=== PATIENT | male | born 1945 | race Caucasian/White ===

== ENCOUNTER 2024-06-03 16:41 | Inpatient (IN) | payer OTHER, SELFPAY ==
[2024-06-03] VITALS (7 sets, daily range): BP systolic 108–133; BP diastolic 56–75; BMI 38.6
--- NOTE | 2024-06-03 14:04 | ED.GENMED ---
History of Present Illness
General
Chief Complaint: Cold/Flu/URI Symptoms
Time Seen by Provider: 06/03/24 13:57
History of Present Illness
History of Present Illness:
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 Patient arrives with who reports prior to arrival, patient went to the bathroom. When he got up, he felt like he
was going to pass out so she told him to lay down. When he tried to lay down, reported that he was unable to because he felt short of breath, so they subsequently called the medics. Patient notes that he started coughing yesterday, dry cough. He
has also been feeling feverish with chills. Denies any known sick contacts. Denies abdominal pain or GI symptoms. He is not oxygen dependent. Per medics, was hypoxic to 88%. On arrival to the hospital, hypoxic 86% on room air. No additional
symptoms reported at this time.
Phy Exam
Physical Exam
Physical Exam:
General: Well-appearing, no clinical signs of dehydration, nontoxic and in no acute distress
HEENT: protecting airway
Neck: appears supple
CV: Normal heart rate, regular rhythm, no evidence of cyanosis
Resp: Mild increased work of breathing, lungs clear to auscultation bilaterally
Abd: Soft and non-distended, no tenderness to palpation, normal bowel sounds
Extremities: No deformities, no swelling, no erythema, pulses and sensation intact
Neuro: alert, no focal neurologic deficit
: deferred
Rectal: deferred
Psych: Normal affect
Skin: Intact
Course
Orders/Labs/Results
Orders:
Orders
06/03/24 13:57
Electrocardiogram (*1) Urgent
Reason for Study: Syncope
06/03/24 13:58
EKG- Treatment ONCE
06/03/24 14:04
CMP [Comprehensive Metabolic Panel] Urgent
COVID-19 Antigen Urgent
Source: Nasal Swab
Complete Blood Count/With Diff Urgent
06/03/24 14:26
0.9% Sodium Chloride 1000 ml [Nss] 1,000 ml IV BOLUS
Acetaminophen [Tylenol] 1,000 mg PO NOW STA
CR Chest - 2 Views Urgent
Comment:
Reason For Exam: cough, covid
06/03/24 16:03
Troponin I Urgent
Abnormal Lab Results
06/03/24
14:04
RBC 4.46 L 10^6/uL
(4.70-6.10)
Hgb 12.9 L g/dL
(13.0-18.0)
MCHC 31.8 L g/dL
(33.0-37.0)
RDW 16.7 H %
(11.5-14.5)
MPV 12.0 H fL
(7.4-10.4)
Abs Immat Gran (auto) 0.1 H 10^3/uL
(0-0.05)
Absolute Neuts (auto) 7.7 H 10^3/uL
(1.4-6.5)
Absolute Lymphs (auto) 0.4 L 10^3/uL
(1.2-3.4)
Immature Gran % 0.7 H %
(0-0.5)
Neutrophils % 90.2 H %
(42.2-75.2)
Lymphocytes % 4.8 L %
(20.5-51.1)
Glucose 138 H mg/dl
(70-99)
SARS-CoV-2 Antigen Positive A
(Negative)
06/03/24 14:04
06/03/24 14:04
Vital Signs
Initial and Last Documented VS:
Initial Vital Signs
BP
114/56
06/03/24 13:51
Last Documented Vital Signs
Temp Pulse Resp BP Pulse Ox
100.5 F H 95 16 114/56 94
06/03/24 14:01 06/03/24 14:01 06/03/24 14:01 06/03/24 14:01 06/03/24 14:02
MDM/Problems Addressed
MDM/Problems Addressed:
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 Vital signs on arrival significant for hypoxia and fever.
On exam, patient nontoxic, mild increased work of breathing, however stable on supplemental O2. Given presenting vital signs and report of cough, concern for infectious pathology, likely pulmonary in etiology, viral versus bacterial. Suspect
etiology of near syncopal episode, likely volume depletion and infectious process. EKG obtained, nonischemic, no arrhythmia. Will administer Tylenol for fever and start IV fluids. Will obtain laboratory analysis, chest x-ray imaging, COVID swab.
14:45 - Patient's COVID is positive. At this time lower suspicion for sepsis. No indication for full 30 cc/kg fluid bolus. Holding antibiotics. Patient will require admission given presenting hypoxia with known pulmonary infection. Patient
agreeable to plan.
*EKG
Interpreted by ED Provider?: Yes
EKG Intrepretation Date: 06/03/24
EKG Intrepretation Time: 14:42
Interpretation: normal
Heart Rate: 79
Rate: normal
Rhythm: sinus and PVC's
[place]: normal axis
Interval: normal interval
QRS Pattern: normal QRS
Ischemia: no ischemia
*Critical Care Note
Total Time (30-74mins, 75-104mins- exclusive of procedures): Not Applicable
ED Attending Note
-
Portions of this chart may have been created with voice recognition software.� Occasional wrong word or��sound alike� substitutions may have occurred due to the inherent limitations of voice recognition software.
Discharge Plan
Departure
Prescriptions:
No Action
hydroxyurea 500 mg Capsule
1,000 mg PO DAILY
polyethylene glycol 3350 [Miralax] 17 gram Powder In Packet
17 g PO DAILY
aspirin 81 mg Tablet,Delayed Release (Dr/Ec)
81 mg PO DAILY
PreserVision AREDS 4,296 mcg-226 mg-90 mg Capsule
1 cap PO BID
Referrals:
UNKNOWN - PT DOES,NOT KNOW [Unknown Provider] -
Interventions
Interventions:
*Risk Screen - Suicide Last Done: 06/03/24 14:03
*General Assessment Last Done: 06/03/24 14:03
*Neglect/Abuse Screening Last Done: 06/03/24 14:03
ED- Pulmonary Assessment Last Done: 06/03/24 14:02
Discharge Date and Time
Print Language: LEBANESE
[2024-06-03 14:14] LABS: COVID-19 Antigen Positive (Negative)
[2024-06-03 14:15] LABS: % Basophils 1.3 % (0-2); % Eosinophils 0.6 % (0-6); % Immature Granulocytes 0.7 % (0-0.5); % Lymphocytes 4.8 % (20.5-51.1); % Monocytes 2.4 % (1.7-9.3); % Neutrophils 90.2 % (42.2-75.2); Absolute Basophils 0.1 10^3/uL (0-0.2); Absolute Eosinophils 0.1 10^3/uL (0-0.7); Absolute Immature Granulocytes 0.1 10^3/uL (0-0.05); Absolute Lymphocytes 0.4 10^3/uL (1.2-3.4); Absolute Monocytes 0.2 10^3/uL (0.1-0.6); Absolute Neutrophils 7.7 10^3/uL (1.4-6.5); Hematocrit 40.6 % (39.0-52.0); Hemoglobin 12.9 g/dL (13.0-18.0); Mean Corp Hgb Conc. 31.8 g/dL (33.0-37.0); Mean Corpuscular Hgb 28.9 pg (27.0-31.0); Nucleated Red Blood Cells % 0 % (-); Platelet Count 139 10^3/uL (130-400); Red Blood Cell Count 4.46 10^6/uL (4.70-6.10); Red Cell Dist. Width 16.7 % (11.5-14.5); White Blood Cell Count 8.5 10^3/uL (4.8-10.8)
[2024-06-03] MEDS: NSS 1000 IV (14:36)
[2024-06-03] MEDS: TYLENOL 1000 MG PO (14:40)
[2024-06-03 14:43] LABS: ALT (SGPT) 28 U/L (0-50); AST (SGOT) 46 U/L (17-59); Albumin 4.3 g/dl (3.5-5.0); Alkaline Phosphatase 72 U/L (38-126); Blood Urea Nitrogen 16 mg/dl (9-20); Calcium 9.2 mg/dl (8.4-10.2); Carbon Dioxide 26 mmol/L (22-30); Chloride 104 mmol/L (98-107); Estimated Creatinine Clearance 98 ml/min; Glucose 138 mg/dl (70-99); Potassium 3.9 mmol/L (3.5-5.1); Sodium 138 mmol/L (135-145); Total Bilirubin 0.6 mg/dl (0.2-1.3); Total Protein 6.7 g/dl (6.3-8.2); eGFR > 60.00
[2024-06-03] MEDS: DECADRON 10 MG IV (16:16)
--- NOTE | 2024-06-03 16:36 | HPS.HSE ---
Family Physician
-
Family Physician: Papito Brock
Chief Complaint
-
cough, shortness of breath
History of Present Illness
79-year-old male past medical history of polycythemia vera, prostate cancer s/p resection presenting to the emergency room for near syncopal episode and cough. Prior to arrival patient went to the bathroom and when he got up he felt like he was
having chills and weak so told him to lie down. When he tried to lie down he was unable to because he felt shortness of breath so medics were called. He started having dry cough since yesterday. He has had fevers and chills. He denies chest
pain or dizziness. No sick contacts. Denies abdominal pain or nausea vomiting but did have diarrhea today. He was hypoxic to 88%.
Denies smoking. Drinks alcohol occasionally.
Medical History
Past Medical History
Past Medical History: Reports Other (polycythemia vera)
Past Surgical History: Reports Cholecystectomy, Urological (prostate cancer resection ) and Other
Social History
Tobacco: Non-smoker
Alcohol: Occasional
Drug: None
Family History
Family History: Not pertinent
Allergies / Home Medications
Allergies reflects when Allergies were last updated in [employer]
Home Medications with original date entered in [employer]
Allergy/Medication List:
Allergies
Allergy/AdvReac Type Severity Reaction Status Date / Time
No Known Allergies Allergy Unverified 02/13/11 06:47
Home Medications
aspirin 81 mg tablet,delayed release 81 mg PO DAILY 06/03/24
hydroxyurea 500 mg capsule 1,000 mg PO DAILY 06/03/24
polyethylene glycol 3350 17 gram oral powder packet (Miralax) 17 g PO DAILY 06/03/24
vitamins A,C,E-ftxf-fisnyh 4,296 mcg-226 mg-90 mg capsule (PreserVision AREDS) 1 cap PO BID 06/03/24
Review of Systems
-
History Source: Patient
A 12 point ROS was completed and negative except as noted: Yes
Constitutional: Reports No Symptoms
EENT: Reports No Symptoms
Respiratory: Reports See HPI
Cardiac: Reports See HPI
Abdomen/GI: Reports No Symptoms
: Reports No Symptoms
Musculoskeletal: Reports No Symptoms
Skin: Reports No Symptoms
Neurological: Reports No Symptoms
Endocrine: Reports No Symptoms
Hematologic/Lymphatic: Reports No Symptoms
Psych: Reports No Symptoms
Physical Exam
Vital Signs
Vital Signs
Temp Pulse Resp BP Pulse Ox
100.5 F H 76 25 108/63 93
06/03/24 14:01 06/03/24 16:15 06/03/24 16:15 06/03/24 16:00 06/03/24 16:15
Physical Exam
General: Well Developed, Well Nourished and No Apparent Distress
HEENT: NormoCephalic, Moist mucous membranes and Atraumatic
Respiratory: Clear
Cardiac: S1/S2 and Regular Rhythm; No Murmur or Rub
GI: Soft, Non Tender, Non Distended and Normal Bowel Sounds; No Organomegaly
Rectal: Deferred by Provider
Musculoskeletal: No Clubbing, No Cyanosis and No Edema
Skin: No Rash
Neuro: Nonfocal/grossly intact
Laboratory Results
-
06/03/24 14:04
06/03/24 14:04
Laboratory Results
Total Bilirubin 0.6 mg/dl (0.2-1.3) 06/03/24 14:04
AST 46 U/L (17-59) 06/03/24 14:04
ALT 28 U/L (0-50) 06/03/24 14:04
Alkaline Phosphatase 72 U/L (38-126) 06/03/24 14:04
Data Reviewed
-
Lab Data: Labs Reviewed by me
Old Records: Reviewed
Impression/Plan
-
IMPRESSION:
PLAN:
# Sepsis (fever, tachycardia)/hypoxic respiratory insufficiency secondary to COVID pneumonia
-Symptoms started on 06/02
-Currently on 4 L oxygen
-Chest x-ray unremarkable
-Dexamethasone 6 mg daily
-Remdesivir
-IV fluids given
# Diarrhea secondary to COVID
-Continue to monitor
Polycythemia vera
-Continue hydroxyurea
-Continue aspirin
Prostate cancer status post resection
Full code
DVT prophylaxis�Lovenox
Regular diet
[2024-06-03 16:43] LABS: Troponin I < 0.012 ng/ml
--- NOTE | 2024-06-03 18:30 | PTCARENOTE ---
Received patient from ED into room 2129 on COVID precautions, patient ambulatory in room with stand by assist, AAOx3, VSS, 98% on 3L O2, denies any SOB or trouble breathing. Admission questions completed with patient at bedside. Regular diet order
entered for patient. Patient states chronic urinary frequency from previous prostate resection, patient given urinal to use at bedside, educated on using call burks to ring for assistance if needing to get up and move around room; patient verbalizes
understanding. Patient oriented to room, states no concerns at this time.
[2024-06-03] MEDS: LOVENOX 40 MG SC (18:36)
[2024-06-03] MEDS: VEKLURY 250 MG IV (21:00)
[2024-06-03] MEDS: OCUVITE SOFTGEL 1 CAP PO (21:00)
[2024-06-03] MEDS: NSS 30 IV (21:08)
[2024-06-04 05:47] LABS: % Basophils 0.6 % (0-2); % Immature Granulocytes 0.5 % (0-0.5); % Lymphocytes 5.8 % (20.5-51.1); % Monocytes 4.5 % (1.7-9.3); % Neutrophils 88.6 % (42.2-75.2); Absolute Basophils 0.1 10^3/uL (0-0.2); Absolute Immature Granulocytes 0.1 10^3/uL (0-0.05); Absolute Lymphocytes 0.6 10^3/uL (1.2-3.4); Absolute Monocytes 0.5 10^3/uL (0.1-0.6); Absolute Neutrophils 9.1 10^3/uL (1.4-6.5); Hematocrit 41.5 % (39.0-52.0); Hemoglobin 13.5 g/dL (13.0-18.0); Mean Corp Hgb Conc. 32.5 g/dL (33.0-37.0); Mean Corpuscular Hgb 29.5 pg (27.0-31.0); Mean Corpuscular Volume 90.6 fL (80.0-94.0); Mean Platelet Volume 12.3 fL (7.4-10.4); Nucleated Red Blood Cells % 0 % (-); Platelet Count 140 10^3/uL (130-400); Red Blood Cell Count 4.58 10^6/uL (4.70-6.10); Red Cell Dist. Width 16.8 % (11.5-14.5); White Blood Cell Count 10.3 10^3/uL (4.8-10.8)
[2024-06-04 06:05] LABS: ALT (SGPT) 61 U/L (0-50); AST (SGOT) 63 U/L (17-59); Albumin 4.2 g/dl (3.5-5.0); Alkaline Phosphatase 77 U/L (38-126); Blood Urea Nitrogen 13 mg/dl (9-20); Calcium 8.9 mg/dl (8.4-10.2); Carbon Dioxide 26 mmol/L (22-30); Chloride 107 mmol/L (98-107); Estimated Creatinine Clearance > 125 ml/min; Glucose 135 mg/dl (70-99); Potassium 4.6 mmol/L (3.5-5.1); Sodium 140 mmol/L (135-145); Total Bilirubin 0.6 mg/dl (0.2-1.3); Total Protein 6.7 g/dl (6.3-8.2); eGFR > 60.00
[2024-06-04 07:15] VITALS: BP 128/84
[2024-06-04] MEDS: ASPIR LOW (ENTERIC COATED) 81 MG PO (08:26)
[2024-06-04] MEDS: HYDREA 1000 MG PO (08:26)
[2024-06-04] MEDS: OCUVITE SOFTGEL 1 CAP PO ×2 (08:26→20:02)
[2024-06-04] MEDS: VEKLURY 250 MG IV (11:22)
[2024-06-04] MEDS: NSS 30 IV (11:23)
[2024-06-04 15:25] VITALS: BP 107/55
--- NOTE | 2024-06-04 16:08 | CM ---
Initial assessment completed with patient and who live in a 1 story condo with no steps to enter. [employer] patient was independent and drove. No DME or in-home services. No psychiatric hospitalizations. Pharmacy is [facility] on [address] in
[place] and PCP is Dr. Papito Brock. Anticipate home with no needs.
--- NOTE | 2024-06-04 17:30 | W.PN.HOSP.TC ---
Today's Communication/Plan
-
See plan
Assessment / Plan
Assessment / Plan
Impression:*
Acute hypoxic respiratory insufficiency secondary to COVID bronchitis
Acute COVID infection symptoms initiated on 06/02 with no evidence of sepsis.
Viral/COVID bronchitis possible pneumonia.
Episode of diarrhea prior to presentation
Other conditions:
Polycythemia vera.
Prostate carcinoma status postresection
Plan:*
Acute hypoxic respiratory insufficiency secondary to COVID bronchitis
Acute COVID bronchitis
Hypoxia likely due to persistent cough
Chest x-ray with no infiltrate.
Currently with no distress. Exam with mild rhonchi and no bronchospasm
Comfortable at rest while in 2 to 3 L of nasal cannula oxygen baseline
Check following CRP
Hold further remdesivir
Initiate Paxlovid.
Continue corticosteroids/Decadron.
Attempt to wean off oxygen
Increase activity baseline
Episode of diarrhea possibly secondary to COVID. Monitor further baseline
Polycythemia vera.
Continue hydroxyurea and aspirin.
Prostate carcinoma s/p resection.
Full code
DVT prophylaxis Lovenox.
Anticipated Discharge: 24 - 48 hours
Subjective/Interval History
-
Date of Service: June 04, 2024
Objective Data
-
Labs:
Laboratory Results
06/04/24
04:57
WBC 10.3
Hgb 13.5
Hct 41.5
Plt Count 140
Sodium 140
Potassium 4.6
Chloride 107
Carbon Dioxide 26
BUN 13
Creatinine 0.6 L
Glucose 135 H
Calcium 8.9
Total Bilirubin 0.6
AST 63 H
ALT 61 H
Alkaline Phosphatase 77
Vital Signs:
Vital Signs
Temp Pulse Resp BP Pulse Ox
98.3 F 64 20 107/55 91
06/04/24 15:25 06/04/24 15:25 06/04/24 15:25 06/04/24 15:25 06/04/24 15:25
I&O
06/03/24 06/04/24 06/05/24
06:59 06:59 06:59
Intake Total 1520 / 1520
Output Total 1425 / 1425
Balance 95 / 95
Physical Exam
-
General: Well Developed and No Apparent Distress
HEENT: Normocephalic, Atraumatic and Moist Mucous Membranes
Respiratory: Clear to Auscultation
Cardiac: Regular Rhythm and S1/S2; Negative Murmur, Rub or Gallop
GI: Soft, Nontender, Nondistended and Normal Bowel Sounds; Negative Organomegaly
Rectal: Deferred by Provider
Musculoskeletal: No Clubbing, No Cyanosis and No Edema
Skin: Negative Rash
Neuro: Nonfocal/Grossly Intact
[2024-06-04] MEDS: LOVENOX 40 MG SC (17:59)
[2024-06-04] MEDS: PAXLOVID 2X150 MG-100 MG DOSE PACK 1 DOSE PO (20:02)
[2024-06-04 23:08] VITALS: BP 138/76
[2024-06-05 07:15] VITALS: BP 134/84
[2024-06-05] MEDS: OCUVITE SOFTGEL 1 CAP PO (08:08)
[2024-06-05] MEDS: PAXLOVID 2X150 MG-100 MG DOSE PACK 1 DOSE PO (08:08)
[2024-06-05] MEDS: HYDREA 1000 MG PO (08:08)
[2024-06-05] MEDS: ASPIR LOW (ENTERIC COATED) 81 MG PO (08:08)
--- NOTE | 2024-06-05 08:59 | W.PN.HOSP.TC ---
Addendum entered and electronically signed by Jessica Mahajan MD 06/05/24 10:22:
pt met criteria for sepsis on admission
Original Note:
Today's Communication/Plan
-
d/c
Assessment / Plan
Assessment / Plan
06/05/24 -- d/c today--off O2
Impression:*
Acute hypoxic respiratory insufficiency secondary to COVID bronchitis
Acute COVID infection symptoms initiated on 06/02 with no evidence of sepsis.
Viral/COVID bronchitis possible pneumonia.
Episode of diarrhea prior to presentation
Other conditions:
Polycythemia vera.
Prostate carcinoma status postresection
Plan:*
Acute hypoxic respiratory insufficiency secondary to COVID bronchitis
Acute COVID bronchitis
Hypoxia likely due to persistent cough
Chest x-ray with no infiltrate.
Currently with no distress. Exam with mild rhonchi and no bronchospasm
Comfortable at rest while in 2 to 3 L of nasal cannula oxygen baseline
Check following CRP
Hold further remdesivir
Initiate Paxlovid.
Continue corticosteroids/Decadron.
Attempt to wean off oxygen
Increase activity baseline
Episode of diarrhea possibly secondary to COVID. Monitor further baseline
Polycythemia vera.
Continue hydroxyurea and aspirin.
Prostate carcinoma s/p resection.
Full code
DVT prophylaxis Lovenox.
Anticipated Discharge: Today
Subjective/Interval History
-
Date of Service: June 05, 2024
pt ready for d/c --no c/o
Objective Data
-
Labs:
Laboratory Results
06/05/24
06:00
WBC Pending
Hgb Pending
Hct Pending
Plt Count Pending
Sodium Pending
Potassium Pending
Chloride Pending
Carbon Dioxide Pending
BUN Pending
Creatinine Pending
Glucose Pending
Calcium Pending
Vital Signs:
max temp for 24 hours
06/04/24
23:08
Temp 98.8 F
Vital Signs
Temp Pulse Resp BP Pulse Ox
98.0 F 88 18 134/84 92
06/05/24 07:15 06/05/24 07:15 06/05/24 07:15 06/05/24 07:15 06/05/24 07:15
I&O
06/04/24 06/05/24 06/06/24
06:59 06:59 06:59
Intake Total 1520 / 1520 1720 / 1720
Output Total 1425 / 1425 2300 / 2300
Balance 95 / 95 -580 / -580
Review of Systems
-
All other systems: Reviewed and negative
Physical Exam
-
General: Well Developed, Well Nourished and No Apparent Distress
HEENT: Normocephalic and Atraumatic; Negative Oxygen
Respiratory: Clear to Auscultation; Negative Wheezes, Rales, Rhonchi or Crackles
Cardiac: Regular Rhythm and S1/S2; Negative Murmur
GI: Soft, Nontender, Nondistended and Normal Bowel Sounds
Musculoskeletal: No Clubbing, No Cyanosis and No Edema
Neuro: Awake and Alert
Psych: Calm
--- NOTE | 2024-06-05 09:09 | W.DCSUMMARY ---
Discharge Summary
Discharge Data
Date of Admission: 06/03/24
Date of Discharge: 06/05/24
-
Pending Results: No
Hospital Course
Primary care physician : Papito Brock
Principal Discharge diagnosis : Acute hypoxemic respiratory insufficiency and diarrhea secondary to COVID
Chronic Discharge diagnosis : Polycythemia vera, prostate cancer s/p resection
Hospital Course : Patient is a 79-year-old male with a history of polycythemia vera, prostate cancer who presented for a near syncopal episode with cough. Patient went up to get to the bathroom and felt like he was having chills. He was weak and
his told him to lie down. He was unable to lie down because he felt short of breath. 911 was called. He had a dry cough since a day prior to admission, along with fever and chills. He denies chest pain or dizziness. Patient was hypoxic to
88% in the emergency department and COVID-positive. He was admitted.
Problem #1: Acute hypoxemic respiratory insufficiency secondary and diarrhea secondary to COVID. Patient was admitted and started on remdesivir. Oxygen support was provided. Patient was able to be weaned off oxygen. IV Decadron was stopped.
Patient was transitioned from remdesivir to Paxlovid. Prescription has been given for discharge. Diarrhea also resolved. Likely secondary to COVID. MiraLAX was held during his hospitalization. He can restart that as able.
Problem #2: All other medical issues. These include Polycythemia vera, prostate cancer s/p resection. These medical issues were stable during his hospitalization. Medications were continued as able.
Patient is stable for discharge home at this time. If there are any questions regarding this dictation or his hospital stay, please not hesitate to call. Our office number is [phone].
Important imaging findings :
CHEST X-RAY IMPRESSION:
Moderate elevation of right hemidiaphragm.
No acute cardiopulmonary process.
Discharge Plan
-
Patient Disposition: Home (Routine Discharge)
Discharge Diagnosis/Procedures: Acute hypoxemic respiratory insufficiency secondary to COVID bronchitis, polycythemia vera, prostate carcinoma s/p resection, diarrhea likely secondary to COVID
Condition: Good
Diet: As tolerated and Regular
Activity: As tolerated
Driving Restrictions: As prior to admission
Bathing Restrictions: None
Referrals:
Papito Brock MD [Family Provider] - in less than 1 week
Prescriptions:
New
Paxlovid 300 mg (150 mg x 2)-100 mg Tablets,Dose Pack
1 ea PO BID Qty: 30 0RF
Continued
hydroxyurea 500 mg Capsule
1,000 mg PO DAILY
polyethylene glycol 3350 [Miralax] 17 gram Powder In Packet
17 g PO DAILY
aspirin 81 mg Tablet,Delayed Release (Dr/Ec)
81 mg PO DAILY
PreserVision AREDS 4,296 mcg-226 mg-90 mg Capsule
1 cap PO BID
Discharge Orders:
Discharge Patient (As Directed); Ordered 06/05/24
Ordered By: Jessica Mahajan
Discharge Date and Time
Print Language: BULGARIAN
--- NOTE | 2024-06-05 10:04 | PN.CDI ---
CDI
- -
CDI:
Physician Documentation Request
Admit Date: 06/03/24 16:41
Dear Doctor Keyshawn,
H&P states ' Sepsis (fever, tachycardia)'
06/03 presenting temp 100.5 , heart rate 90-101 , respiratory rate 36
06/04 progress note states ' .....no evidence of sepsis'
Please clarify the following:
____ - Sepsis was present on admission .
____ - Sepsis was ruled out
____ - Other
Use of terms such as suspected, likely, concern for, or probable (associated with a specific diagnosis that is being evaluated, monitored, or treated as if it exists) are acceptable and can be coded in the inpatient setting, when documented at the
time of discharge.
Thank you,
Ama Chinchilla RN, BSN
CDI Specialist
tiger text
Please use your independent medical judgment in providing your response.
[2024-06-05 11:00] VITALS: BP 126/73
--- NOTE | 2024-06-05 12:54 | PTCARENOTE ---
Patient discharged home with no needs. This RN removed patient's IV, reviewed discharge instructions/medications with patient who verbalized understanding. Patient dressed independently and gathered belongings in room. Patient being transported home
by spouse, taken down to patient's car via staff escort and wheelchair.
--- NOTE | 2024-06-05 13:17 | CM ---
Plan: Discharge to home; no needs; will transport home
== END 2024-06-05 13:34 | disposition home or self-care (01) | DRG 871 ==
LOC: 2 NORTH 16:41
PROVIDERS: ADMITTING PHYSICIAN Hospitalist; ATTENDING PHYSICIAN Internal Medicine; EMERGENCY PHYSICIAN Student in an Organized Health Care Education/Training Program; FAMILY PHYSICIAN Family Medicine
DX: A41.89 Other specified sepsis (principal); J12.82 Pneumonia due to coronavirus disease 2019; U07.1 COVID-19; Z11.52 Encounter for screening for COVID-19; R09.02 Hypoxemia; R06.89 Other abnormalities of breathing; J20.8 Acute bronchitis due to other specified organisms; D45 Polycythemia vera; C61 Malignant neoplasm of prostate
CPT/HCPCS: 71046; 80053; 84484; 85025; 86140; 87811; 93005; 96361; 96374; 99285; J0248

== ENCOUNTER → 2024-07-31 08:43 | Outpatient (REF) | payer OTHER, SELFPAY | LOC: EMG 08:43 | PROVIDERS: ATTENDING PHYSICIAN Family Medicine | DX: R20.0 Anesthesia of skin (principal) | CPT/HCPCS: 95886; 95911 ==

== ENCOUNTER → 2024-08-04 07:56 | Outpatient (REF) | payer OTHER, SELFPAY | LOC: DHCBC/DCA 07:56 | PROVIDERS: ATTENDING PHYSICIAN Family Medicine | DX: R06.09 Other forms of dyspnea (principal) | CPT/HCPCS: 78452; 93017; A9500; J2785 ==